=== PATIENT | female | born 1995 | race Caucasian/White ===

== ENCOUNTER 2019-04-16 22:52 | Emergency (ER) | payer OTHER ==
[~2019-04-16] VITALS: Ht 167.6 cm; Wt 69.2 kg
[~2019-04-16 22:52] MED LIST: CIPR500T4 PO; TYL500 PO
[2019-04-16 22:56] VITALS: Ht 167.6 cm; Wt 69.2 kg
[2019-04-17] MEDS ORDERED: KETOROLAC 30 MG INJ IM STA (01:08)
[2019-04-17] MEDS ORDERED: CEFTRIAXONE 1 GM INJ IM ONE (02:30)
[2019-04-17 02:36] VITALS: BP 107/60; PULSE 72; RESP 20
== END 2019-04-17 02:54 | disposition home or self-care (01) ==
LOC: FTE 22:52
DX: N10 Acute pyelonephritis (principal)
CPT/HCPCS: 81003; 81025; 87086; 96372; J0696; J1885; Z7502